=== PATIENT | male | born 1940 | race Caucasian/White ===

== ENCOUNTER 2022-03-29 14:09 | Emergency (ER) | payer MEDICARE, SELFPAY ==
--- NOTE | ~2022-03-29 | XR_ITS ---
EXAMINATION: XR elbow LT min 3V DATE: 03/29/2022 14:30 INDICATION: Posttraumatic pain and difficulty moving of the left elbow TECHNIQUE: Anteroposterior, two oblique and lateral views of the left elbow were obtained. COMPARISON: None. FINDINGS: Alignment is normal. No fracture or joint effusion. Mild osteoarthritis at the left elbow with nonuni form joint space narrowing and small marginal osteophytes at the ulnotrochlear and proximal radioulna r articulations. Moderate-sized olecranon spur. Soft tissues are unremarkable. IMPRESSION: 1. Mild osteoarthritis at the left elbow. No left elbow joint effusion or acute osseous abnormality. Reviewed, dictated and finalized at location B.
[2022-03-29 14:18] VITALS: BP 122/72; PULSE 64; RESP 16; O2SAT 100
--- NOTE | 2022-03-29 14:42 | ED.UPPEXIN ---
HPI - Extremity Injury (Upper) General Chief Complaint: Extremity Injury, Upper Stated Complaint: Left Elbow Injury Time Seen by Provider: 03/29/22 14:36 History of Present Illness HPI narrative: 81-year-old male presents the emergency room with left elbow pain has been present for over 2 months. 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 Patient states the pain has been present since it has progressively gotten better. Patient states yesterday he heard a pop in his left forearm and the pain returned. Patient denies any other injury or trauma. Patient denies any weakness distal to the injury Related Data Allergies Allergy/AdvReac Type Severity Reaction Status Date / Time hydrocodone Allergy Unknown SEVERE Verified 03/29/22 14:40 NAUSEA AND VOMITING Review of Systems Review of Systems: CONSTITUTIONAL: Denies fever, chills, or sweats. EYES: Denies visual changes, redness, or discharge. ENT: Denies rhinorrhea, congestion, sore throat, or otalgia. CARDIOVASCULAR: Denies chest pain, palpitations, or edema. RESPIRATORY: Denies cough or dyspnea. GASTROINTESTINAL: Denies abdominal pain, nausea, vomiting, or diarrhea. GENITOURINARY: Denies dysuria or hematuria. SKIN: Denies rash or itching. MUSCULOSKELETAL: Reports left elbow pain NEUROLOGIC: Denies headache, numbness, dizziness, or weakness. PSYCHIATRIC: Denies anxiety or depression. Exam Narrative: GENERAL: Well-appearing, well-nourished, and in no acute distress. HEAD: Normocephalic, atraumatic. EYES: PERRLA and EOMI. ENT: Nares clear, no rhinorrhea or epistaxis. Mucous membranes moist. Oropharynx without tonsillar hypertrophy exudate or other lesions. Bilateral TMs pearly lacey nonbulging NECK: Supple. No adenopathy or masses. No carotid bruits or JVD CHEST: Clear to auscultation. No respiratory distress. No wheezes rales or rhonchi HEART: Regular rate and rhythm. No murmur heard. Normal peripheral pulses. ABDOMEN: Soft, nontender, nondistended, normal active bowel sounds. EXTREMITIES: Left upper extremity: Localized tenderness over the medial epicondyle, pain is worsened with wrist flexion and pronation, neurovascular is intact distally, no obvious bony abnormality SKIN: Warm, dry, no rash. NEURO: No focal deficits. Alert and oriented x3. PSYCH: Normal mood and affect. Course Vital Signs Vital signs: Vital Signs Pulse Rate 64 03/29/22 14:18 Respiratory Rate 16 03/29/22 14:18 Blood Pressure 122/72 03/29/22 14:18 Pulse Oximetry 100 03/29/22 14:18 Oxygen Delivery Room Air 03/29/22 14:18 Pulse Rate 64 03/29/22 14:18 Respiratory Rate 16 03/29/22 14:18 Blood Pressure 122/72 03/29/22 14:18 Pulse Oximetry 100 03/29/22 14:18 Oxygen Delivery Room Air 03/29/22 14:18 Discharge Plan Discharge Clinical Impression: Epicondylitis elbow, medial Patient Disposition: Home, Self-Care Condition: Stable Instructions: Antibiotic Form, Tennis Elbow (ED) Additional Instructions: Recommend going to the pharmacy and obtaining a Band-it elbow brace. All instructions as to how to place it on your forearm. Wear the brace for comfort. Take anti-inflammatories as directed. Prescriptions: New naproxen 500 mg tablet 500 mg PO BID 10 Days Qty: 20 0RF Follow-up/Referrals: Bertha,Bret Kilgore MD [Primary Care Provider] - Time of Disposition: 14:43
== END 2022-03-29 15:16 | disposition home or self-care (01) ==
LOC: ANHED 14:48
PROVIDERS: Emergency Provider Nurse Practitioner Family; PCP Emergency Medicine
DX: M77.02 Medial epicondylitis, left elbow (principal)
CPT/HCPCS: 73080; 99283